=== PATIENT | male | born 1965 | race Caucasian/White ===

== ENCOUNTER 2017-01-10 09:25 | Emergency (ER) | payer OTHER ==
[~2017-01-10] VITALS: Ht 177.8 cm; Wt 76.0 kg
[2017-01-10 09:35] VITALS: TEMP 37; Ht 177.8 cm; Wt 76.0 kg
[2017-01-10] MEDS ORDERED: SODIUM CHLORIDE 0.9% 1000ML 1,000 ML IV STA (09:40)
[2017-01-10] MEDS ORDERED: SODIUM CHLORIDE 0.9% 1000ML 1,000 ML IV ONE (09:40)
[2017-01-10 10:00] LABS: HEMATOCRIT 50.3 % (42-52); MEAN CELL VOLUME 95.8 fL (80-100); MEAN CORPUSCULAR HEMOGLOBIN 32.4 pg (25-34); MEAN CORPUSCULAR HGB CONC 33.8 g/dl (32-36); MEAN PLATELET VOLUME 9.3 fL (7.4-10.4); PLATELET COUNT 303 K/uL (130-400); RED BLOOD COUNT 5.25 M/uL (4.7-6.1); WHITE BLOOD COUNT 14.73 K/uL (4.8-10.8)
--- NOTE | 2017-01-10 10:00 | DIAGNOSTIC IMAGING REPORT ---
CHEST ONE VIEW PORTABLE CLINICAL HISTORY: CHEST PAIN dyspnea COMPARISON STUDY: No previous studies for comparison. FINDINGS: The bones soft tissues and hemidiaphragms are normal. The cardiomediastinal silhouette is normal. The lungs are clear. The pulmonary vasculature is normal. IMPRESSION: Negative chest. Electronically signed by: Siddharth Garrett M.D. 01/10/2017 9:59 AM Dictated Date/Time: 01/10/2017 9:58 AM
[2017-01-10 10:16] LABS: BUN/CREATININE RATIO 13.8 (10-20); CALCIUM 9.1 mg/dl (8.5-10.1); CREATININE 1.7 mg/dl (0.60-1.40); POTASSIUM 3.5 mmol/L (3.5-5.1)
--- NOTE | 2017-01-10 10:29 | DIAGNOSTIC IMAGING REPORT ---
HEAD CT NONCONTRAST CT DOSE: 614.27 mGy.cm HISTORY: Seizure like symptoms. eval for intracranial process TECHNIQUE: Multiaxial CT images of the head were performed without the use of intravenous contrast. Automated exposure control was utilized for this study. Comparison: None. Findings: Retention cyst within the right maxillary sinus. No fluid levels within the paranasal sinuses. Age-indeterminate nasal bone fractures. The mastoid air cells are clear. The calvarium and skull base are intact. The ventricles and sulci are within normal limits. There is no mass, hematoma, midline shift, or acute infarct. Impression: No acute intracranial abnormality. Age-indeterminate nasal bone fractures. Electronically signed by: Moo Stevens M.D. 01/10/2017 10:27 AM Dictated Date/Time: 01/10/2017 10:23 AM
[2017-01-10 10:33] LABS: ACETAMINOPHEN < 2 ug/ml (10-30)
[2017-01-10] MEDS ORDERED: CLONAZEPAM 1 MG TAB PO STA (10:35)
[2017-01-10] MEDS ORDERED: CLONAZEPAM 0.5 MG TAB ONE (10:47)
[2017-01-10 11:02] LABS: BASO % 0.5 %; BASO ABS # 0.08 K/uL (0-0.2); COMPLETE YES; EOS % 0.5 %; IG% 0.3 %; LYMPH % 40.6 %; LYMPH ABS # 5.98 K/uL (1.2-3.4); MONO % 9.8 %; NEUT % 48.3 %
[2017-01-10] MEDS ORDERED: CHOL1TAB2 PO (12:02)
[2017-01-10] MEDS ORDERED: ZCR40 PO (12:02)
[2017-01-10] MEDS ORDERED: CITA20TA4 PO (12:02)
[2017-01-10] MEDS ORDERED: CLON1TAB3 PO (13:39)
[2017-01-10 13:55] VITALS: BP 111/60; PULSE 76; O2SAT 96
[2017-01-10 14:14] LABS: BENZODIAZEPINE, URINE NEG (NEG); COCAINE,URINE NEG (NEG); PHENCYCLIDINE, URINE NEG (NEG)
--- NOTE | 2017-01-10 14:21 | EMERGENCY ROOM VISIT NOTE ---
History Report prepared by Vikki: Roseanne Gee Under the Supervision of: Dr. Km Roberts M.D. First contact with patient: 09:39 Chief Complaint: ALTERED MENTAL STATUS Stated Complaint: MENTAL HEALTH EVALUATION Nursing Triage Summary: PT PRESENTS VIA ALS FROM WORK. PT HAS SIGNIFICANT ANXIETY HISTORY, THIS PAST SATURDAY WAS RECENTLY TAKEN OFF BENZOS AND PLACED ON CELEXA AND ATARAX. TODAY AT WORK, PT DEVELOPED AN ANXIETY ATTACK WITH "TWITCHING/SPASMODIC MOVEMENTS AND FELL TO THE FLOOR RESULTING IN FACIAL ABRASIONS". EMS DISPATCHED, PT WAS RESPONDING TO QUESTIONS [facility] THEN WHEN ARRIVED AT HOSPITAL HAD SEIZURE LIKE ACTIVITY AND BECAME POST-ICTAL WITH APENIC LIKE BREATHING PRIOR TO ENTERING ED ROOM. History of Present Illness The patient is a 51 year old male who presents to the Emergency Room with complaints of an episode of seizure like activity. He was on Klonopin, but was taken off of it 2 days ago by his doctor. He feels shaky and disconnected since the episode. He denies any recent illness. He fell and hit his head earlier today. He denies any headache. He tells me that he was on the Klonopin for 8 years and it was abruptly stopped by his doctor. These are the symptoms he gets when he stops his Klonopin on the way and he did have a possible seizure. The nurse got me and he was able to wake up but he did seem diaphoretic. He was not incontinent. He did not require any medications. Source of History: patient, EMS Onset: [facility] [employer] Position: other (global) Quality: other (seizure like activity) Timing: other (episodic) Associated Symptoms: No headache Note: Pt reports feeling shaky and disconnected. Review of Systems See HPI for pertinent positives & negatives. A total of 10 systems reviewed and were otherwise negative. Past Medical & Surgical Medical Problems: (1) Anxiety Old medical records were reviewed. Nurse's notes were reviewed and I agree with. Family History Pt reports no pertinent family history. Social History Smoking Status: Never Smoker Marital Status: single Occupation Status: employed Current/Historical Medications Scheduled Cholecalciferol (Vitamin D-3), 2 TABS PO QAM Citalopram Hydrobromide (Citalopram Hydrobromide), 1 TAB PO DAILY Clonazepam (Klonopin), 1 MG PO QD Simvastatin (Simvastatin), 0.5 TAB PO HS Allergies Coded Allergies: No Known Allergies (Unverified , 01/10/17) Physical Exam Vital Signs Date Time Temp Pulse Resp B/P Pulse Ox O2 Delivery O2 Flow Rate FiO2 01/10/17 13:55 76 20 111/60 96 01/10/17 13:30 76 20 111/60 96 Room Air 01/10/17 12:30 70 20 110/55 96 Room Air 01/10/17 10:48 96 16 127/69 95 Room Air 01/10/17 09:41 105 01/10/17 09:35 37.0 107 16 175/60 91 Room Air Physical Exam General: Post ictal, but awake and answering questions. Well developed well nourished, breathing comfortably on room air. Normal speech HEENT: Normal cephalic atraumatic. Pupils are equal round and reactive to light. Sclerae anicteric. Extraocular movements are intact. Oropharynx is pink with moist mucous membranes. No swelling of the mouth lips or tongue. Neck: Supple with a midline trachea. No meningeal signs or stiffness, no JVD or bruits. No Stridor. Chest: Clear to auscultation bilaterally. No wheezes or rhonchi. No increased work of breathing. Heart: regular rate and rhythm. Abdomen: Soft nontender, nondistended without rebound guarding or rigidity. Extremities: No cyanosis clubbing or edema. No calf tenderness or assymetry Spine/Back. Non tender to palpation. No CVA tenderness Skin: Good turgor without rashes. Mildly diaphoretic. Abrasion to nose from previous fall. Neurologic exam: Cranial nerves two through 12 are intact. Motor and sensation are intact and symmetrical throughout. Medical Decision & Procedures ER Provider Diagnostic Interpretation: X-ray results as stated below per interpretation by me and the radiologist. Radiology results as stated below per my review and radiologist interpretation: CHEST ONE VIEW PORTABLE CLINICAL HISTORY: CHEST PAIN dyspnea COMPARISON STUDY: No previous studies for comparison. FINDINGS: The bones soft tissues and hemidiaphragms are normal. The cardiomediastinal silhouette is normal. The lungs are clear. The pulmonary vasculature is normal. IMPRESSION: Negative chest. Electronically signed by: Siddharth Garrett M.D. 01/10/2017 9:59 AM Dictated Date/Time: 01/10/2017 9:[address] CT DOSE: 614.27 mGy.cm HISTORY: Seizure like symptoms. eval for intracranial process TECHNIQUE: Multiaxial CT images of the head were performed without the use of intravenous contrast. Automated exposure control was utilized for this study. Comparison: None. Findings: Retention cyst within the right maxillary sinus. No fluid levels within the paranasal sinuses. Age-indeterminate nasal bone fractures. The mastoid air cells are clear. The calvarium and skull base are intact. The ventricles and sulci are within normal limits. There is no mass, hematoma, midline shift, or acute infarct. Impression: No acute intracranial abnormality. Age-indeterminate nasal bone fractures. Electronically signed by: Moo Stevens M.D. 01/10/2017 10:27 AM Dictated Date/Time: 01/10/2017 10:23 AM Laboratory Results 01/10/17 09:40 Red Blood Count 5.25, Mean Corpuscular Volume 95.8, Mean Corpuscular Hemoglobin 32.4, Mean Corpuscular Hemoglobin Concent 33.8, Mean Platelet Volume 9.3, Neutrophils (%) (Auto) 48.3, Lymphocytes (%) (Auto) 40.6, Monocytes (%) (Auto) 9.8, Eosinophils (%) (Auto) 0.5, Basophils (%) (Auto) 0.5, Neutrophils # (Auto) 7.10, Lymphocytes # (Auto) 5.98, Monocytes # (Auto) 1.44, Eosinophils # (Auto) 0.08, Basophils # (Auto) 0.08 01/10/17 09:40 Test 01/10/17 09:37 01/10/17 09:40 01/10/17 09:52 01/10/17 10:00 Bedside Glucose 166 mg/dl (70-99) White Blood Count 14.73 K/uL (4.8-10.8) Red Blood Count 5.25 M/uL (4.7-6.1) Hemoglobin 17.0 g/dL (14.0-18.0) Hematocrit 50.3 % (42-52) Mean Corpuscular Volume 95.8 fL (80-100) Mean Corpuscular Hemoglobin 32.4 pg (25-34) Mean Corpuscular Hemoglobin Concent 33.8 g/dl (32-36) Platelet Count 303 K/uL (130-400) Mean Platelet Volume 9.3 fL (7.4-10.4) Neutrophils (%) (Auto) 48.3 % Lymphocytes (%) (Auto) 40.6 % Monocytes (%) (Auto) 9.8 % Eosinophils (%) (Auto) 0.5 % Basophils (%) (Auto) 0.5 % Neutrophils # (Auto) 7.10 K/uL (1.4-6.5) Lymphocytes # (Auto) 5.98 K/uL (1.2-3.4) Monocytes # (Auto) 1.44 K/uL (0.11-0.59) Eosinophils # (Auto) 0.08 K/uL (0-0.5) Basophils # (Auto) 0.08 K/uL (0-0.2) RDW Standard Deviation 45.8 fL (36.4-46.3) RDW Coefficient of Variation 13.1 % (11.5-14.5) Immature Granulocyte % (Auto) 0.3 % Immature Granulocyte # (Auto) 0.05 K/uL (0.00-0.02) Anion Gap 28.0 mmol/L (3-11) Est Creatinine Clear Calc Drug Dose 53.7 ml/min Estimated GFR () 53.3 Estimated GFR (Non- 46.0 BUN/Creatinine Ratio 13.8 (10-20) Calcium Level 9.1 mg/dl (8.5-10.1) Total Bilirubin 1.0 mg/dl (0.2-1) Direct Bilirubin 0.2 mg/dl (0-0.2) Aspartate Amino Transf (AST/SGOT) 28 U/L (15-37) Alanine Aminotransferase (ALT/SGPT) 39 U/L (12-78) Alkaline Phosphatase 90 U/L (45-117) Total Creatine Kinase 344 U/L (39-308) Creatine Kinase MB 3.3 ng/ml (0.5-3.6) Creatine Kinase MB Ratio 1.0 (0-3.0) Total Protein 8.5 gm/dl (6.4-8.2) Albumin 4.4 gm/dl (3.4-5.0) Lipase 206 U/L (73-393) Salicylates Level < 1.7 mg/dl (2.8-20) Acetaminophen Level < 2 ug/ml (10-30) Bedside Troponin I 0.000 ng/ml (0-0.045) Ethyl Alcohol mg/dL < 3.0 mg/dl (0-3) Test 01/10/17 13:30 Urine Opiates Screen NEG (NEG) Urine Methadone, Qualitative NEG (NEG) Urine Barbiturates NEG (NEG) Urine Phencyclidine (PCP) Level NEG (NEG) Ur Amphetamine/Methamphetamine NEG (NEG) MDMA (Ecstasy) Screen NEG (NEG) Urine Benzodiazepines Screen NEG (NEG) Urine Cocaine Metabolite NEG (NEG) Urine Marijuana (THC) NEG (NEG) Laboratory studies as stated above per my review. Medications Administered Medications (Trade) Dose Ordered Sig/John Route Start Time Stop Time Status Last Admin Dose Admin Sodium Chloride 1,000 ml @ 999 mls/hr Q1H1M STAT IV 01/10/17 09:40 01/10/17 10:40 DC 01/10/17 09:57 999 MLS/HR Sodium Chloride (Nss 1000ml) 1,000 ml @ 150 mls/hr Q6H40M ONCE IV 01/10/17 09:40 01/10/17 16:19 01/10/17 09:40 150 MLS/HR Clonazepam (Klonopin Tab) 1 mg STK-MED ONCE .ROUTE 01/10/17 10:47 01/10/17 10:48 DC 01/10/17 10:43 1 MG ECG Indication: altered mental status Rate (beats per minute): 107 Rhythm: sinus tachycardia Findings: no acute ischemic change, prolonged QT (mild) Comparison ECG Date: no prior available ED Course 0932: Past medical records reviewed. The patient was evaluated in room A11B, and a complete history and physical examination were performed. 0940: NSS 1000 ml @ 150 mls/hr IV, NSS 1000 ml @ 999 mls/hr IV. 1035: I reevaluated the patient. He looks better. He is not post-ictal. He feels that he needs Klonopin. 1047: Clonazepam 1 mg. 1145: I reevaluated the patient. He is doing better. 1302: I reevaluated the patient. He is resting comfortably. 1340: Upon reevaluation, the patient is resting comfortably. I discussed the results and treatment plan with him. I stressed that he should not drive today or until he feels back at baseline. He verbalized agreement of the treatment plan. The patient was discharged home. Medical Decision Differential diagnoses: medication withdrawal, seizure, arrhythmia, trauma. This patient comes in as described above. He was placed in room A 11. He abruptly was stopped on benzodiazepines which he's been on for 8 years and has been shaking feeling disconnected since then. He had a brief seizure prior to coming and he did receive Ativan 1 mg prior to this he woke up quickly and was resting comfortably. He has requested his normal Klonopin and he takes 1 mg a day. I gave him his normal Klonopin a prescription for the next week. CAT scan of his head was unremarkable. Blood work shows some mild renal insufficiency but was otherwise unremarkable. This could be hydrationally related. He is to rest and drink plenty of fluids. he did receive IV hydration while he was here. He denies that he had any suicidal or homicidal ideations. He's been feeling somewhat anxious. He does fine if he is on his meds he says. Our case management team saw him from a psychiatric standpoint and she has made him an appointment to see a psychiatrist tomorrow at the [facility]. The patient will not drive. I think that symptoms were from withdrawal and would not have a permanent exclusion from driving but today he should not drive and if these back to baseline he can drive later. He should return if worsening symptoms, any new problems or concerns. He is happy with plan discharge to home. Impression Primary Impression: Medication withdrawal Additional Impressions: Seizure Anxiety Scribe Attestation The scribe's documentation has been prepared under my direction and personally reviewed by me in its entirety. I confirm that the note above accurately reflects all work, treatment, procedures, and medical decision making performed by me. Departure Information Dispostion Home / Self-Care Prescriptions Clonazepam (Klonopin) 1 Mg Tab 1 MG PO QD, #10 TAB Prov: Km Roberts M.D. 01/10/17 Referrals Km Bolanos D.O. Forms HOME CARE DOCUMENTATION FORM, IMPORTANT VISIT INFORMATION Patient Instructions My [facility] Additional Instructions Rest Drink plenty of fluids Do not drive or operate machinary Return if: worsening of symptoms, fever, shortness of breath, any new problems or concerns Use Klonopin 1 mg a day- Replaces Atarax [facility] at [facility]:15- Dr. Pena Problem Qualifiers
[2017-02-27] MEDS ORDERED: PARO10TA3 PO (14:02)
[2017-02-27] MEDS ORDERED: KLN5 PO (14:02)
== END 2017-01-10 13:56 | disposition home or self-care (01) ==
LOC: EDBD 09:25 → C.EDA 09:30
DX: F19.20 Other psychoactive substance dependence, uncomplicated (principal); G40.909 Epilepsy, unspecified, not intractable, without status epilepticus; F41.9 Anxiety disorder, unspecified; Z79.899 Other long term (current) drug therapy

== ENCOUNTER 2017-02-25 07:58 | Observation (INO) | payer OTHER ==
[2017-02-25] VITALS (7 sets, daily range): BP systolic 97–147; BP diastolic 46–88; PULSE 50–79; TEMP 36–37.1; O2SAT 96–98; Ht 177.8 cm; Wt 78.6 kg
[~2017-02-25] VITALS: Ht 177.8 cm; Wt 78.6 kg
[~2017-02-25 07:58] MED LIST: CHOL1TAB2 PO; CITA20TA4 PO; CLON1TAB3 PO; ZCR40 PO
[2017-02-25] MEDS ORDERED: TRAZ50TA35 PO (08:14)
[2017-02-25] MEDS ORDERED: PXL/40 PO (08:14)
[2017-02-25 09:24] LABS: BASO % 0.3 %; BASO ABS # 0.02 K/uL (0-0.2); COMPLETE YES; EOS % 0.3 %; HEMATOCRIT 43.1 % (42-52); IG% 0.2 %; LYMPH % 24.4 %; LYMPH ABS # 1.45 K/uL (1.2-3.4); MEAN CELL VOLUME 92.9 fL (80-100); MEAN CORPUSCULAR HEMOGLOBIN 31.7 pg (25-34); MEAN CORPUSCULAR HGB CONC 34.1 g/dl (32-36); MEAN PLATELET VOLUME 8.7 fL (7.4-10.4); MONO % 7.6 %; NEUT % 67.2 %; PLATELET COUNT 191 K/uL (130-400); RED BLOOD COUNT 4.64 M/uL (4.7-6.1); WHITE BLOOD COUNT 5.94 K/uL (4.8-10.8)
--- NOTE | 2017-02-25 09:29 | DIAGNOSTIC IMAGING REPORT ---
CHEST ONE VIEW PORTABLE HISTORY: SYNCOPE VS SEIZURE COMPARISON: Chest 01/10/2017. FINDINGS: The lungs remain clear. The heart is mildly enlarged. This remains unchanged. No pleural effusions. No pneumothorax. IMPRESSION: Stable mild cardiomegaly. Electronically signed by: Moo Stevens M.D. 02/25/2017 9:27 AM Dictated Date/Time: 02/25/2017 9:26 AM
[2017-02-25 09:34] LABS: URINE APPEARANCE CLEAR (CLEAR); URINE BILIRUBIN NEG (NEG); URINE COLOR YELLOW; URINE NITRITE NEG (NEG); URINE PH 6.5 (4.5-7.5); URINE SPECIFIC GRAVITY 1.024 (1.000-1.030); UROBILINOGEN NEG (NEG)
[2017-02-25 09:35] LABS: PROTHROMBIN TIME (PATIENT) 10.6 SECONDS (9.0-12.0)
[2017-02-25 09:35] LABS: MANUAL MICROSCOPIC REQUIRED? NO; REVIEW REQ? NO
[2017-02-25 09:42] LABS: ALT/SGPT 24 U/L (12-78); BLOOD UREA NITROGEN 20 mg/dl (7-18); BUN/CREATININE RATIO 21.9 (10-20); CARBON DIOXIDE 28 mmol/L (21-32); CHLORIDE 107 mmol/L (98-107); CREATININE 0.93 mg/dl (0.60-1.40); GLUCOSE 104 mg/dl (70-99); POTASSIUM 4.5 mmol/L (3.5-5.1); SODIUM 141 mmol/L (136-145)
[2017-02-25 09:53] LABS: ALB/GLOB RATIO 1.1 (0.9-2); ALKALINE PHOSPHATASE 67 U/L (45-117); AST/SGOT 17 U/L (15-37); CKMB/CK RATIO 1.2 (0-3.0); PHOSPHORUS 1.8 mg/dl (2.5-4.9)
[2017-02-25 09:55] LABS: BENZODIAZEPINE, URINE POS (NEG); COCAINE,URINE NEG (NEG); PHENCYCLIDINE, URINE NEG (NEG)
[2017-02-25 09:59] LABS: CALCIUM 8.4 mg/dl (8.5-10.1)
[2017-02-25] MEDS ORDERED: ACETAMINOPHEN 325 MG TAB PO PRN (12:30)
[2017-02-25] MEDS ORDERED: ONDANSETRON INJ 2 MG/ML 2 ML VIAL IV PRN (12:30)
--- NOTE | 2017-02-25 12:50 | History and Physical ---
History & Physical Date & Time of Service: February 25, 2017 at 12:33 Chief Complaint: Seizure Like Sx Primary Care Physician: Serena Pena C.R.N.P. History of Present Illness Source: patient This is a 51yo male with PMHx of hypercholesterolemia, anxiety, depression, panic attacks, PTSD with complaints of electrical-like/shock like sensation in his face. Patient reports electricity shocking episodes are chronic in nature , but had a bad spell at approximately 1:30 in the morning last night. He reports that he was able to go back to sleep and then woke back up around 6:30 AM with another. He reports the sensation is as if the electricity has been removed from his body. He denies any loss of consciousness during the event reports that if the pain/electrical shock sensation is too great, he has experience seizure-like activity. He he denies having any tonic-clonic seizure- like activity, but does report a postictal phase where he is not able to remember the event. This has been witnessed by a principal secretary at work before. The events have increased in intensity and frequency since he's been taken off Klonopin at the beginning of January, prior to this had been on klonopin Patient reports he has 1 episode approximately every other day in the each lasts from 1 hour to several hours on a regular basis. He has not identified any trigger factors. He does not find any alleviating factors other than Ativan or Klonopin. He reports being abruptly discontinued on klonopin in early January, it was not weaned down. Since seeing his PCP after his ER visit on January 10, he was given a 1 wk supply of Klonopin 1mg QID and weaned off completely again. He has been taking 0.25 mg for episodes to in hopes extend availability of medication. Patient was seen by psychiatrist at the [facility] at end of last week, and was started on paroxetine 10 mg daily for depression, anxiety and panic attacks. He has taken this before and experienced improvement in his mood, but stopped it due to sexual dysfunction. Since this weekend, he has taken it for one day and actually has reservations about continuing the medication due to history of sexual dysfunction while on it. 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 The patient has tried multiple medications including Paxil, Prozac, Zoloft, Celexa, Lexapro, hydroxyzine, Klonopin, Xanax He stopped chewing tobacco ~ 1 month ago, had done it for 35 years. Past Medical/Surgical History Medical Problems: (1) Anxiety Status: Chronic (2) Dyslipidemia Status: Chronic (3) Medication withdrawal Status: Resolved (4) Seizure Status: Resolved Social History Smoking Status: Never Smoker Smokeless Tobacco Use: Yes (40 year history, quit 1 month ago.) Alcohol Use: none Drug Use: none Marital Status: single Housing status: lives alone Occupational Status: employed Allergies Coded Allergies: Hydroxyzine (Unverified Allergy, Intermediate, ., 02/25/17) Sertraline (Unverified Allergy, Intermediate, ., 02/25/17) Home Medications Scheduled Cholecalciferol (Vitamin D-3), 2 TABS PO QAM Paroxetine (Paxil), Unknown Dose PO DAILY Simvastatin (Simvastatin), 0.5 TAB PO HS Trazodone Hcl (Trazodone), 50 MG PO DAILY Review of Systems Constitutional: No fever, sweats or chills Eyes: No diplopia, no worsening or blurred vision ENT: normal hearing, no trouble swallowing Respiratory: No cough, sputum, dyspnea at rest or on exertion Cardiovascular: No chest pain, tightness or palpitations Abdomen: No pain, nausea, vomiting, diarrhea or constipation Musculoskeletal: No joint pain, calf pain, swelling Neurologic: No weakness, numbness/tingling, or balance problems Psychiatric: See history of present illness Skin: No rash or itch Physical Exam Vital Signs Date Time Temp Pulse Resp B/P Pulse Ox O2 Delivery O2 Flow Rate FiO2 02/25/17 12:08 98 Room Air 02/25/17 11:13 54 16 110/60 98 Room Air 02/25/17 11:05 54 16 110/60 98 70 111/78 65 113/79 02/25/17 09:29 55 02/25/17 09:26 62 16 109/65 97 Room Air 02/25/17 08:01 36.9 83 18 126/83 97 Room Air General: awake, alert, no apparent distress, +flat affect Head: Normocephalic, atraumatic ENT: PERRL, EOMI, no pharyngeal exudate, mucous membranes moist Chest: Clear to auscultation, on room air, no adventitious breath sounds Cardiac: + Bradycardic, regular rhythm, no murmur, no JVD, normal peripheral pulses, good capillary refill Abdominal: NABS x 4 quadrants, soft, nontender to palpation, no rebound, guarding or tenderness Extremities: Normal inspection, no peripheral edema or erythema, calfs nontender to palpation Psych: Normal mood, flat affect, good eye contact Neuro: AAO x 3, strength intact bilaterally and related 5/5, no motor deficits, speech is clear, no peripheral sensory deficits Diagnostics Laboratory Results Results Past 24 Hours Test 02/25/17 09:03 02/25/17 09:12 02/25/17 09:15 02/25/17 09:29 Range/Units Creatine Kinase MB Ratio 1.2 0-3.0 White Blood Count 5.94 4.8-10.8 K/uL Red Blood Count 4.64 4.7-6.1 M/uL Hemoglobin 14.7 14.0-18.0 g/dL Hematocrit 43.1 42-52 % Mean Corpuscular Volume 92.9 80-100 fL Mean Corpuscular Hemoglobin 31.7 25-34 pg Mean Corpuscular Hemoglobin Concent 34.1 32-36 g/dl Platelet Count 191 130-400 K/uL Mean Platelet Volume 8.7 7.4-10.4 fL Neutrophils (%) (Auto) 67.2 % Lymphocytes (%) (Auto) 24.4 % Monocytes (%) (Auto) 7.6 % Eosinophils (%) (Auto) 0.3 % Basophils (%) (Auto) 0.3 % Neutrophils # (Auto) 3.99 1.4-6.5 K/uL Lymphocytes # (Auto) 1.45 1.2-3.4 K/uL Monocytes # (Auto) 0.45 0.11-0.59 K/uL Eosinophils # (Auto) 0.02 0-0.5 K/uL Basophils # (Auto) 0.02 0-0.2 K/uL RDW Standard Deviation 43.5 36.4-46.3 fL RDW Coefficient of Variation 12.9 11.5-14.5 % Immature Granulocyte % (Auto) 0.2 % Immature Granulocyte # (Auto) 0.01 0.00-0.02 K/uL Prothrombin Time 10.6 9.0-12.0 SECONDS Prothromb Time International Ratio 1.0 0.9-1.1 Activated Partial Thromboplast Time 25.9 21.0-31.0 SECONDS Partial Thromboplastin Ratio 1.0 Sodium Level 141 136-145 mmol/L Potassium Level 4.5 3.5-5.1 mmol/L Chloride Level 107 98-107 mmol/L Carbon Dioxide Level 28 21-32 mmol/L Anion Gap 6.0 3-11 mmol/L Blood Urea Nitrogen 20 7-18 mg/dl Creatinine 0.93 0.60-1.40 mg/dl Est Creatinine Clear Calc Drug Dose 98.1 ml/min Estimated GFR () 110.6 Estimated GFR (Non- 95.4 BUN/Creatinine Ratio 21.9 10-20 Random Glucose 104 70-99 mg/dl Calcium Level 8.4 8.5-10.1 mg/dl Phosphorus Level 1.8 2.5-4.9 mg/dl Magnesium Level 2.0 1.8-2.4 mg/dl Total Bilirubin 0.5 0.2-1 mg/dl Aspartate Amino Transf (AST/SGOT) 17 15-37 U/L Alanine Aminotransferase (ALT/SGPT) 24 12-78 U/L Alkaline Phosphatase 67 45-117 U/L Total Creatine Kinase 165 39-308 U/L Creatine Kinase MB 2.0 0.5-3.6 ng/ml Troponin I < 0.015 0-0.045 ng/ml Total Protein 6.9 6.4-8.2 gm/dl Albumin 3.6 3.4-5.0 gm/dl Globulin 3.3 2.5-4.0 gm/dl Albumin/Globulin Ratio 1.1 0.9-2 Thyroid Stimulating Hormone (TSH) 1.800 0.300-4.500 uIu/ml Urine Color YELLOW Urine Appearance CLEAR CLEAR Urine pH 6.5 4.5-7.5 Urine Specific [place] 1.024 1.000-1.030 Urine Protein NEG NEG Urine Glucose (UA) NEG NEG Urine Ketones NEG NEG Urine Occult Blood NEG NEG Urine Nitrite NEG NEG Urine Bilirubin NEG NEG Urine Urobilinogen NEG NEG Urine Leukocyte Esterase NEG NEG Urine Opiates Screen NEG NEG Urine Methadone, Qualitative NEG NEG Urine Barbiturates NEG NEG Urine Phencyclidine (PCP) Level NEG NEG Ur Amphetamine/Methamphetamine NEG NEG MDMA (Ecstasy) Screen NEG NEG Urine Benzodiazepines Screen POS NEG Urine Cocaine Metabolite NEG NEG Urine Marijuana (THC) NEG NEG Bedside Glucose 95 70-99 mg/dl Impression Assessment and Plan This is a 51-year-old male with PMHx of hypercholesterolemia, anxiety, depression, panic attacks, PTSD with complaints of electrical-like shock like sensation in his face. Presents after continued complaints since Klonopin was discontinued in early January. Shocklike electrical sensation - Admit the patient for telemetry observation - Consider cardiology consult pending tele monitoring, was already scheduled for Holter monitor as outpatient in the next month- will plan to give Rx at time of discharge for Holter monitor. - Lab studies are within normal limits - Daily EKG - Consider neurology consult if nothing shows on Holter monitor Anxiety/depression Panic attacks PTSD - We'll continue the patient on his home dosage of trazodone 50 mg daily at bedtime, and paroxetine 10 mg daily for now. Would suggest that if the patient already has reservations about starting paroxetine due to sexual dysfunction, that this should be discontinued. In light of his complaints of panic attacks and anxiety along with electrical shocklike complaints the patient may benefit from gabapentin. He has not tried any anti-seizure medication or mood stabilizer in the past. - Please see HPI for list of medications he has previously tried. - Can use Ativan 1 mg IV when necessary- would not discharge the patient on this medication - Patient will need close follow-up with psychiatrist at the [facility] after discharge , preferably within 1 week - He does not currently see a counselor, recommended this to the patient Hyperlipidemia - Continue simvastatin 20 mg daily Hx of Chewing tobacco - Encouraged continued cessation - Pt has outpatient colonoscopy scheduled next month. DVT prophylaxis: Teds, SCDs, Lovenox CODE STATUS: Full code Disposition: Holter monitor outpatient set up, likely can discharge within one day. Level of Care Telemetry Advanced Directives Existing Living Will: No Existing Power of Ampoule Examiner: No Resuscitation Status FULL RESUSCITATION VTE Prophylaxis VTE Risk Assessment Done? Y/N: Yes Risk Level: Very Low Given or contraindicated: Enoxaparin (Lovenox)SQ, T.E.D. Stockings, SCD's Reviewed: Pt Seen/Exam by Me History Pt has been having ongoing "electrical shocks" since moving to the floor from the ED. No major episodes with LOC, but ongoing mild episodes. He states these are about 1/hr on average, but at times he has more. Of note, these sx are what prompted the use of klonopin in 2007. He thinks he may have seen neuro at that time, but is unsure. He states he was never given a dx about this, but the shocks stopped with initiation of klonopin at that time and did not return until d/c in January. No incontinence. Onset can be at rest or with activity, sometimes strenuous activity, some times basic activity. Sometimes with LOC, sometimes just a shock. Can be either side of face or back of head. Is uncertain if he had an EEG or cardiac work-up in 2007. Agree with HPI/ROS as noted. General Appearance: WD/WN, no apparent distress Respiratory: normal breath sounds, no respiratory distress Cardiovascular: normal peripheral pulses, regular rate, rhythm Gastrointestinal: non tender, soft Extremities: non-tender, no pedal edema Neurologic/Psychiatric: alert, oriented x 3 Skin Characteristics: normal color, warm/dry Assessment/Plan Agree with plan as outlined above Tele monitor Pt advised to note time when he has episodes to try to correlate with monitor Seems likely he will need neuro c/s with EEG if tele monitor is neg ?? atypical seizures??
[2017-02-25] MEDS ORDERED: LORAZEPAM 2 MG/ML 1 ML VIAL IV PRN (13:00)
[2017-02-25] MEDS ORDERED: LORAZEPAM 0.5 MG TAB PO PRN (13:00)
[2017-02-25] MEDS ORDERED: IV FLUIDS COMPLETED PRN (13:45)
[2017-02-25] MEDS ORDERED: LORAZEPAM INJ 1 MG in SYRINGE 0.5 ML IV PRN (14:00)
--- NOTE | 2017-02-25 16:00 | EMERGENCY ROOM VISIT NOTE ---
History First contact with patient: 08:29 Chief Complaint: OTHER COMPLAINT Stated Complaint: SEIZURE LIKE SX History of Present Illness Patient is a 51-year-old white male with past medical history significant for dyslipidemia who presents the emergency department for seizure-like activity. Patient reports that his symptoms started in the end of December/early January, when his clonazepam was discontinued by his PCP at the [facility]. Patient reports that he has been on the clonazepam for 10 years for a "neurology problem." He denies that he takes for anxiety. He was seen here on a 01/10 for similar symptoms. He describes episodes where he gets a "electrical jolt" through his face, and his face goes numb. He states that that is "the warning" that something worse is going to happen. He states that he will then go on to loose control of his body , occasionally he has fallen and had loss of consciousness with amnesia of the incident. He relates that that has happened multiple times in the last couple of weeks. He was seen in the emergency department at [facility] 2 weeks ago and in [place] last week. He denies any generalized tonic/clonic seizure activity, there is no incontinence or tongue biting associated with these episodes. He has been given multiple diagnoses including medication withdrawal, seizure and syncope. He has made multiple attempts to get in with the [facility], but has been unable to. He does not have an appointment until March 14, at which point he states they're planning on doing a Holter monitor. He reports that he had been on hydroxyzine and a different SSRI, but he discontinued them as he thought they were contributing to his symptoms. He otherwise has been taking Paroxetine , but has only taken 2 doses of this, his last dose was yesterday, and has used trazodone as needed for sleep for the last month. He denies any alcohol or illicit drug use. He denies any chest pain, palpitations or shortness of breath. Review of Systems Review of systems as per HPI. All other systems reviewed were negative. 10 systems reviewed. Past Medical/Surgical History Medical Problems: (1) Anxiety (2) Dyslipidemia (3) Medication withdrawal (4) Seizure (5) Seizure-like activity Electronic medical records are reviewed and summarized as above/below. See Problem List. Social History Smoking Status: Former Smoker Smokeless Tobacco Use: Yes Marital Status: single Housing Status: lives alone Occupation Status: employed Current/Historical Medications Scheduled Cholecalciferol (Vitamin D-3), 2 TABS PO QAM Paroxetine (Paxil), Unknown Dose PO DAILY Simvastatin (Simvastatin), 0.5 TAB PO HS Trazodone Hcl (Trazodone), 50 MG PO DAILY Allergies Coded Allergies: Hydroxyzine (Unverified Allergy, Intermediate, ., 02/25/17) Sertraline (Unverified Allergy, Intermediate, ., 02/25/17) Physical Exam Vital Signs Date Time Temp Pulse Resp B/P Pulse Ox O2 Delivery O2 Flow Rate FiO2 02/25/17 12:08 98 Room Air 02/25/17 11:13 54 16 110/60 98 Room Air 02/25/17 11:05 54 16 110/60 98 70 111/78 65 113/79 02/25/17 09:29 55 02/25/17 09:26 62 16 109/65 97 Room Air 02/25/17 08:01 36.9 83 18 126/83 97 Room Air Physical Exam CONSTITUTIONAL: Patient is a well-appearing 51-year-old white male who is awake and alert and in no acute distress. HEENT: Normocephalic, atraumatic. Pupils equal, round, reactive to light and accommodation. EOMs intact without nystagmus. Sclera are anicteric. Tympanic membranes intact, with normal landmarks. External canals are clear. No hemotympanum or Bernal sign. Oral and nasopharynx are clear. No CSF rhinorrhea. Mucous membranes are moist. NECK: Supple, nontender, no lymphadenopathy. Full range of motion. No carotid bruits auscultated. HEART: Regular rate and rhythm, with normal S1 and S2, no murmur or gallop or rub is heard. LUNGS: Breath sounds equal and clear to auscultation without wheezes, rales, or rhonchi heard. SKIN: No lesions or rash, normal skin turgor. EXTREMITIES: No cyanosis, edema, joint tenderness or swelling. No deformity. NEUROLOGICAL: Alert and oriented x4. Cranial nerves 2 through 12, sensation and strength grossly intact. Gait is normal. Patient is able to toe, heel and tandem walk without difficulty. Negative Romberg, and pronator drift. Finger to nose, finger to finger and rapid alternating movements are intact. Immediate , recent and remote memories are intact. Concentration is normal. Medical Decision & Procedures ER Provider Diagnostic Interpretation: CHEST ONE VIEW PORTABLE HISTORY: SYNCOPE VS SEIZURE COMPARISON: Chest 01/10/2017. FINDINGS: The lungs remain clear. The heart is mildly enlarged. This remains unchanged. No pleural effusions. No pneumothorax. IMPRESSION: Stable mild cardiomegaly. Laboratory Results 02/25/17 09:12 Red Blood Count 4.64, Mean Corpuscular Volume 92.9, Mean Corpuscular Hemoglobin 31.7, Mean Corpuscular Hemoglobin Concent 34.1, Mean Platelet Volume 8.7, Neutrophils (%) (Auto) 67.2, Lymphocytes (%) (Auto) 24.4, Monocytes (%) (Auto) 7.6, Eosinophils (%) (Auto) 0.3, Basophils (%) (Auto) 0.3, Neutrophils # (Auto) 3.99, Lymphocytes # (Auto) 1.45, Monocytes # (Auto) 0.45, Eosinophils # (Auto) 0.02, Basophils # (Auto) 0.02 02/25/17 09:12 Test 02/25/17 09:12 02/25/17 09:15 02/25/17 09:29 White Blood Count 5.94 K/uL (4.8-10.8) Red Blood Count 4.64 M/uL (4.7-6.1) Hemoglobin 14.7 g/dL (14.0-18.0) Hematocrit 43.1 % (42-52) Mean Corpuscular Volume 92.9 fL (80-100) Mean Corpuscular Hemoglobin 31.7 pg (25-34) Mean Corpuscular Hemoglobin Concent 34.1 g/dl (32-36) Platelet Count 191 K/uL (130-400) Mean Platelet Volume 8.7 fL (7.4-10.4) Neutrophils (%) (Auto) 67.2 % Lymphocytes (%) (Auto) 24.4 % Monocytes (%) (Auto) 7.6 % Eosinophils (%) (Auto) 0.3 % Basophils (%) (Auto) 0.3 % Neutrophils # (Auto) 3.99 K/uL (1.4-6.5) Lymphocytes # (Auto) 1.45 K/uL (1.2-3.4) Monocytes # (Auto) 0.45 K/uL (0.11-0.59) Eosinophils # (Auto) 0.02 K/uL (0-0.5) Basophils # (Auto) 0.02 K/uL (0-0.2) RDW Standard Deviation 43.5 fL (36.4-46.3) RDW Coefficient of Variation 12.9 % (11.5-14.5) Immature Granulocyte % (Auto) 0.2 % Immature Granulocyte # (Auto) 0.01 K/uL (0.00-0.02) Prothrombin Time 10.6 SECONDS (9.0-12.0) Prothromb Time International Ratio 1.0 (0.9-1.1) Activated Partial Thromboplast Time 25.9 SECONDS (21.0-31.0) Partial Thromboplastin Ratio 1.0 Anion Gap 6.0 mmol/L (3-11) Est Creatinine Clear Calc Drug Dose 98.1 ml/min Estimated GFR () 110.6 Estimated GFR (Non- 95.4 BUN/Creatinine Ratio 21.9 (10-20) Calcium Level 8.4 mg/dl (8.5-10.1) Phosphorus Level 1.8 mg/dl (2.5-4.9) Magnesium Level 2.0 mg/dl (1.8-2.4) Total Bilirubin 0.5 mg/dl (0.2-1) Aspartate Amino Transf (AST/SGOT) 17 U/L (15-37) Alanine Aminotransferase (ALT/SGPT) 24 U/L (12-78) Alkaline Phosphatase 67 U/L (45-117) Total Creatine Kinase 165 U/L (39-308) Creatine Kinase MB 2.0 ng/ml (0.5-3.6) Creatine Kinase MB Ratio 1.2 (0-3.0) Troponin I < 0.015 ng/ml (0-0.045) Total Protein 6.9 gm/dl (6.4-8.2) Albumin 3.6 gm/dl (3.4-5.0) Globulin 3.3 gm/dl (2.5-4.0) Albumin/Globulin Ratio 1.1 (0.9-2) Thyroid Stimulating Hormone (TSH) 1.800 uIu/ml (0.300-4.500) Urine Color YELLOW Urine Appearance CLEAR (CLEAR) Urine pH 6.5 (4.5-7.5) Urine Specific [place] 1.024 (1.000-1.030) Urine Protein NEG (NEG) Urine Glucose (UA) NEG (NEG) Urine Ketones NEG (NEG) Urine Occult Blood NEG (NEG) Urine Nitrite NEG (NEG) Urine Bilirubin NEG (NEG) Urine Urobilinogen NEG (NEG) Urine Leukocyte Esterase NEG (NEG) Urine Opiates Screen NEG (NEG) Urine Methadone, Qualitative NEG (NEG) Urine Barbiturates NEG (NEG) Urine Phencyclidine (PCP) Level NEG (NEG) Ur Amphetamine/Methamphetamine NEG (NEG) MDMA (Ecstasy) Screen NEG (NEG) Urine Benzodiazepines Screen POS (NEG) Urine Cocaine Metabolite NEG (NEG) Urine Marijuana (THC) NEG (NEG) Bedside Glucose 95 mg/dl (70-99) ECG Indication: syncope Rate (beats per minute): 57 Rhythm: sinus bradycardia Findings: no acute ischemic change, no ectopy Change: no significant change ED Course The patient was seen and evaluated as above. His old records are reviewed, including his prior ED visit from January, at which point he states that he presented with similar symptoms. He presents today with vague neurologic symptoms, with questionable associated loss of consciousness, possibly seizure versus syncope. Patient history and physical exam were reviewed with attending physician, and ED workup was agreed upon. IV access was obtained and laboratory studies were collected. BSG was performed and was 95. He was placed on the insulation nozzleman. EKG was performed. Orthostatic vital signs did not indicate orthostasis. CBC with differential, coags, magnesium, phosphorus, cardiac enzymes, TSH and CMP were performed. Chest x-ray was obtained and was unremarkable. EKG demonstrated a sinus bradycardia, but otherwise no ectopy or acute ischemic changes. CBC noted a normal white count of 5900, H&H is 14.7 and 43.1, platelet count 191 ,000. Coags are normal. Electrolytes are without significant abnormality, except for his phosphorus which is slightly low at 1.8.. Renal function is normal. Liver functions are not elevated. TSH is indicative of a euthyroid state. Cardiac enzymes are negative 1. Urinalysis is clear and urine toxicology screen is positive for benzodiazepines only. All laboratory and diagnostic imaging studies were reviewed with attending physician. Differential includes acute coronary syndrome, arrhythmia, seizure disorder, CVA/TIA, medication withdrawal, medication side effect, orthostasis, dehydration, electrolyte abnormalities, anemia, hypoglycemia, among others. Treatment options were discussed with the patient at length. Patient was also reviewed with the emergency department case folder. Patient would like to pursue further testing in the hospital. He was reviewed with Dr. Cordero with the [facility] Hospitalist Service for further care and management. Medical Decision See ED Course Impression Primary Impression: Syncope Departure Information Referrals Serena Pena C.R.N.P. (PCP) Patient Instructions My [facility]
[2017-02-25] MEDS: ENOXAPARIN 40 MG/0.4 ML SYR SC SCH (18:39)
[2017-02-25] MEDS: SIMVASTATIN 20 MG TAB PO SCH (21:45)
[2017-02-25] MEDS: TRAZODONE HCL 50 MG TAB PO SCH (21:45)
[2017-02-26] VITALS (10 sets, daily range): BP systolic 89–118; BP diastolic 57–72; PULSE 51–86; TEMP 36.4–37.2; O2SAT 95–97
[2017-02-26] MEDS: PAROXETINE 20 MG TAB PO SCH (08:40)
[2017-02-26] MEDS ORDERED: TRAZODONE HCL 50 MG TAB PO SCH (09:00)
[2017-02-26] MEDS: ENOXAPARIN 40 MG/0.4 ML SYR SC SCH (12:30)
[2017-02-26] MEDS ORDERED: CLONAZEPAM 0.5 MG TAB PO STA (17:19)
[2017-02-26 19:28] LABS: LYME DISEASE AB IGG NEG (NEG)
[2017-02-26 19:31] LABS: LYME DISEASE AB IGM EQUIVOCAL (NEG)
--- NOTE | 2017-02-26 19:52 | DIAGNOSTIC IMAGING REPORT ---
ORBIT RADIOGRAPHS 3 VIEWS HISTORY: pre-MRI screening. COMPARISON: None. FINDINGS: There are no radiopaque foreign bodies identified within the orbits. IMPRESSION: No radiopaque foreign bodies identified within the orbits. Electronically signed by: Moo Stevens M.D. 02/26/2017 7:50 PM Dictated Date/Time: 02/26/2017 7:50 PM
--- NOTE | 2017-02-26 21:26 | DIAGNOSTIC IMAGING REPORT ---
Brain MRA HISTORY: electric shock sensation over face, eval for vasculitis TECHNIQUE: 3-D [id number] MRA of the brain was performed without contrast. COMPARISON STUDY: Head CT 01/10/2017. FINDINGS: Visualized intracranial internal carotid arteries, distal vertebral arteries, and basilar artery are widely patent. There is no significant stenosis, occlusion, or aneurysm seen within the bilateral ACAs, MCAs, or hospitality housekeeper. Hypoplastic right P1 segment. The right REAL ESTATE TEACHER is fed primarily through the posterior communicating artery consistent with persistent circulation. IMPRESSION: No significant stenosis, occlusion, or aneurysm within the [place]. Electronically signed by: Moo Stevens M.D. 02/26/2017 9:24 PM Dictated Date/Time: 02/26/2017 9:22 PM
--- NOTE | 2017-02-26 21:28 | DIAGNOSTIC IMAGING REPORT ---
NECK MRA HISTORY: Seizures. paresthesias TECHNIQUE: [id number] and gadolinium-enhanced MRA of the neck was performed both before and after the intravenous administration of contrast. All measurements were calculated based on NASCET criteria. COMPARISON STUDY: None. FINDINGS: The aortic arch and proximal great vessels are widely patent. There is no significant stenosis, occlusion, or dissection identified within the bilateral common carotid, internal carotid, or vertebral arteries. Tortuous bilateral distal internal carotid arteries IMPRESSION: No significant stenosis, occlusion, or dissection identified within the carotid or vertebral arteries. Electronically signed by: Moo Stevens M.D. 02/26/2017 9:27 PM Dictated Date/Time: 02/26/2017 9:25 PM
[2017-02-26] MEDS: TRAZODONE HCL 50 MG TAB PO SCH (21:44)
[2017-02-26] MEDS: SIMVASTATIN 20 MG TAB PO SCH (21:45)
[2017-02-26] MEDS ORDERED: GADAVIST IV PRN (21:45)
[2017-02-26] MEDS: CLONAZEPAM 0.5 MG TAB PO SCH (21:45)
--- NOTE | 2017-02-26 21:55 | DIAGNOSTIC IMAGING REPORT ---
Brain MRI WITH AND WITHOUT CONTRAST HISTORY: Seizure. eval for tumors, stroke, etc TECHNIQUE: Multiplanar multisequence MRI of the brain was performed both before and after the intravenous administration of contrast. COMPARISON STUDY: Head CT 01/10/2017. FINDINGS: There are no areas of restricted diffusion to suggest acute infarction. The midline structures are intact. A 3 cm retention cyst within the right maxillary sinus.. The mastoid air cells are clear. The ventricles and sulci are within normal limits for age. There is no mass, hematoma, midline shift. The major vascular flow-voids at the skull base are well maintained. Postcontrast sequences show no areas of abnormal enhancement. Small focus of encephalomalacia within the left anterior frontal lobe cortex best seen on image 16. This favors an old injury or old infarct. There is a tiny focus of adjacent gliosis at this location. The temporal lobes are symmetric. IMPRESSION: No acute intracranial abnormality. Small focus of encephalomalacia within the left anterior frontal lobe likely represents an old injury or old infarct. Electronically signed by: Moo Stevens M.D. 02/26/2017 9:54 PM Dictated Date/Time: 02/26/2017 9:46 PM
[2017-02-27 07:06] VITALS: BP_SYST 103; BP_SYST 104; BP_DIAS 65; BP_DIAS 67; BP_DIAS 70; PULSE 54; PULSE 57; TEMP 36.8; O2SAT 95
[2017-02-27 08:00] VITALS: O2SAT 95
--- NOTE | 2017-02-27 08:06 | Progress Note ---
Subjective Date of Service: February 26, 2017. Subjective Pt evaluation today including: conversation w/ patient, physical exam, chart review, lab review, review of studies (MRIs), review of inpatient medication list Pain: no headache, no pain with "shock feeling" of face PO Intake: normal Voiding: no voiding problems electric "shock" sensations/spells on b/l face present x 8 years had previous w/u through the [facility] 4-5 years ago; neg MRI brain, neg EEG he states the "shock" sensation causes him to "disassociate" he has had one episode in the past where he felt like he was going to pass out he occasionally has "depth perception" problems but denies diplopia, visual field cuts, or vertigo symptoms occur at rest nothing seems to induce the symptoms such as arm movements, neck movements, etc on rare occasions he feels like his body "goes flaccid" (arms and legs) but this is seldom he has been given multiple meds over the years for this as it was presumed the symptoms were anxiety/panic related klonipin DOES help this was stopped in January and his symptoms have been MUCH worse [place] and asks about lyme's disease no recent rash Problem List Medical Problems: (1) Dyslipidemia Status: Chronic (2) Syncope Status: Acute Review of Systems Constitutional: No chills, No fever Respiratory: No dyspnea on exertion, No shortness of breath Cardiac: No chest pain Abdomen: No pain Objective Vital Signs Date Time Temp Pulse Resp B/P Pulse Ox O2 Delivery O2 Flow Rate FiO2 02/26/17 23:59 Room Air 02/26/17 23:49 36.5 60 18 103/67 96 Room Air 60 93/60 60 96/61 02/26/17 22:42 51 101/65 02/26/17 20:00 Room Air 02/26/17 19:43 36.8 64 18 118/70 95 Room Air 02/26/17 16:00 Room Air 02/26/17 15:17 36.7 68 16 104/60 96 Room Air 68 115/62 85 111/72 02/26/17 12:00 95 Room Air 02/26/17 11:35 37.2 62 16 106/65 97 Room Air 02/26/17 08:00 95 Room Air 02/26/17 07:12 36.6 51 18 97/60 95 Room Air 02/26/17 04:00 36.6 63 18 90/58 97 Room Air 63 02/26/17 04:00 Room Air Physical Exam General Appearance: no apparent distress ENT: pharynx normal Neck: no JVD Respiratory/Chest: lungs clear, no respiratory distress, no accessory muscle use Cardiovascular: regular rate, rhythm, no gallop, no murmur Abdomen: normal bowel sounds, non tender, soft, no organomegaly Extremities: no pedal edema Neurologic/Psychiatric: paver layer II-XII nml as tested, no motor/sensory deficits, alert, normal mood/affect, oriented x 3 Skin: no rash Laboratory Results Last 24 Hours Test 02/26/17 07:36 02/26/17 11:38 02/26/17 16:29 02/26/17 17:53 Bedside Glucose 110 mg/dl 93 mg/dl 89 mg/dl Erythrocyte Sedimentation Rate 5 mm/hr Vitamin B12 Level 593 pg/mL Lyme Disease IgG Antibody NEG Lyme Disease IgM Antibody EQUIVOCAL Test 02/26/17 22:02 Bedside Glucose 91 mg/dl Assessment and Plan 51yo male - 1. "electric shock" / paresthesias of b/l face x 8 years, recently worse off of klonipin - plan MRI head, MRA brain, MRA neck lyme's b12 level sed rate EEG differential - complex partial seizures vs psychiatric in nature vs metabolic cause vs infectious vs other pending his results may need neurology for their opinion 2. anxiety disorder / PTSD - resume klonipin 0.5mg BID 3. DVT proph - lovenox daily Discharge planning: home
[2017-02-27] MEDS: CLONAZEPAM 0.5 MG TAB PO SCH (08:28)
[2017-02-27] MEDS: PAROXETINE 20 MG TAB PO SCH (08:29)
--- NOTE | 2017-02-27 09:12 | EEG Procedure Note ---
EEG Procedure Note Date of Service February 27, 2017. Start / End Times Start Time: 7:03 AM End Time: 7:23 AM Referring Physician Jarvis Bhat History This is a 51-year-old male with seizure-like activity. EEG for further evaluation of possible seizure etiology. Home Medication List Scheduled Cholecalciferol (Vitamin D-3), 2 TABS PO QAM Paroxetine (Paxil), Unknown Dose PO DAILY Simvastatin (Simvastatin), 0.5 TAB PO HS Trazodone Hcl (Trazodone), 50 MG PO DAILY Inpatient Medication List Current Inpatient Medications Medications (Trade) Dose Ordered Sig/John Route Start Time Stop Time Status Last Admin Dose Admin Enoxaparin Sodium (Lovenox Inj) 40 mg Q24H SC 02/25/17 12:30 03/27/17 12:29 02/25/17 18:39 40 MG Acetaminophen (Tylenol Tab) 650 mg Q4H PRN PO 02/25/17 12:30 03/27/17 12:29 Ondansetron HCl (Zofran Inj) 4 mg Q6H PRN IV 02/25/17 12:30 03/27/17 12:29 Simvastatin (Zocor Tab) 20 mg HS PO 02/25/17 21:00 03/27/17 20:59 02/26/17 21:45 20 MG Paroxetine HCl (pAXil TAB) 10 mg QAM PO 02/26/17 09:00 03/28/17 08:59 Lorazepam (Ativan Inj) 1 mg Q6 PRN IV 02/25/17 13:00 03/27/17 12:59 Lorazepam (Ativan Tab) 0.5 mg Q4 PRN PO 02/25/17 13:00 03/27/17 12:59 02/26/17 12:38 0.5 MG Miscellaneous 1 ea 1 ea PRN PRN N/A 02/25/17 13:45 02/25/18 13:44 Lorazepam/Syringe (Ativan Inj/ Syringe) 1 ml @ 1 mls/min Q6H PRN IV 02/25/17 14:00 03/27/17 13:59 02/25/17 20:17 1 MLS/MIN Trazodone HCl (Desyrel Tab) 50 mg HS PO 02/25/17 21:00 03/27/17 20:59 02/26/17 21:44 50 MG Clonazepam (Klonopin Tab) 0.5 mg BID PO 02/26/17 21:00 03/28/17 20:59 02/27/17 08:28 0.5 MG Gadobutrol (Gadavist) 7 mmol UD PRN IV 02/26/17 21:45 03/02/17 21:44 Description This is a 21 electrode EEG with a single channel dedicated to limited EKG. The electrodes were placed in accordance with the International 10-20 system. At the start of the recording the patient was in an awake state. Background was well organized and composed of symmetric mixed alpha and beta frequencies. There was a symmetric well-formed moderate amplitude 9-10 Hz posterior dominant rhythm that was reactive to eye opening and closure. Hyperventilation was not done. Intermittent photic stimulation at various frequencies produced no abnormalities. There was no state changes or sleep transients. Interpretation This is a normal awake only routine EEG. There was no electrographic seizures or epileptiform discharges. Clinical Correlation A normal EEG does not rule out epilepsy if there is a strong clinical suspicion.
--- NOTE | 2017-02-27 10:28 | Neurology Consultation ---
Neurology Consultation Date of Consultation: February 27, 2017. Attending Physician: Jarvis Bhat MD Primary Care Physician: Serena Pena C.R.N.P. Reason for Consultation: Complex partial seizures? History of Present Illness Source: patient, hospital records The patient is a 51-year-old male with a history of post traumatic stress disorder, anxiety disorder, and panic attacks who has been experiencing episodic, paroxysmal, electric-like sensations which seem to emanate from his brain and travel throughout his body. He denies experiencing any pain associated with these episodes which reportedly occur multiple times per day. These episodes occur suddenly but are often preceded by a general feeling of anxiousness as well as a feeling as if something bad is going to happen. Some of these episodes have been quite intense and have been associated with falls. He has not sustained any major injuries, however. He denies associated tongue bite or incontinence of stool or urine. The patient reports that he maintains awareness during these episodes. No stiffening of the limbs or associated shaking movements reported. No abnormal posturing. The patient indicates that he began experiencing these episodes over 10 years ago and that he was treated with clonazepam at that time. He reports that this medication has been fairly helpful in reducing the intensity and frequency of these episodes over the ensuing years. However, more recently, his primary care physician recommended tapering off clonazepam. The patient states that he began experiencing more of these episodes as a result of discontinuation of this medication. The patient states that he was evaluated by a neurologist affiliated with the [facility] in [place]. He recalls having an EEG completed a few years ago and was told the results were normal. He has not been diagnosed with epilepsy or seizure disorder. Patient denies a family history of epilepsy. The patient denies a past medical history of head injury or stroke. He reports a fairly normal developmental history although indicates that he may have attention deficit disorder but states this was never formally evaluated and treated. 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 Past Medical/Surgical History Medical Problems: (1) Dyslipidemia Status: Chronic (2) Syncope Status: Acute Family History The patient denies a family history of epilepsy or seizure disorder although does report a history of paranoid schizophrenia in several relatives Social History Smokeless Tobacco Use: Yes Alcohol Use: none Drug Use: none Marital Status: single Housing Status: lives alone Occupation Status: employed Allergies Coded Allergies: Hydroxyzine (Unverified Allergy, Intermediate, ., 02/25/17) Sertraline (Unverified Allergy, Intermediate, ., 02/25/17) Current Inpatient Medications Current Inpatient Medications Medications (Trade) Dose Ordered Sig/John Route Start Time Stop Time Status Last Admin Dose Admin Enoxaparin Sodium (Lovenox Inj) 40 mg Q24H SC 02/25/17 12:30 03/27/17 12:29 02/25/17 18:39 40 MG Acetaminophen (Tylenol Tab) 650 mg Q4H PRN PO 02/25/17 12:30 03/27/17 12:29 Ondansetron HCl (Zofran Inj) 4 mg Q6H PRN IV 02/25/17 12:30 03/27/17 12:29 Simvastatin (Zocor Tab) 20 mg HS PO 02/25/17 21:00 03/27/17 20:59 02/26/17 21:45 20 MG Paroxetine HCl (pAXil TAB) 10 mg QAM PO 02/26/17 09:00 03/28/17 08:59 Lorazepam (Ativan Inj) 1 mg Q6 PRN IV 02/25/17 13:00 03/27/17 12:59 Lorazepam (Ativan Tab) 0.5 mg Q4 PRN PO 02/25/17 13:00 03/27/17 12:59 02/26/17 12:38 0.5 MG Miscellaneous 1 ea 1 ea PRN PRN N/A 02/25/17 13:45 02/25/18 13:44 Lorazepam/Syringe (Ativan Inj/ Syringe) 1 ml @ 1 mls/min Q6H PRN IV 02/25/17 14:00 03/27/17 13:59 02/25/17 20:17 1 MLS/MIN Trazodone HCl (Desyrel Tab) 50 mg HS PO 02/25/17 21:00 03/27/17 20:59 02/26/17 21:44 50 MG Clonazepam (Klonopin Tab) 0.5 mg BID PO 02/26/17 21:00 03/28/17 20:59 02/27/17 08:28 0.5 MG Gadobutrol (Gadavist) 7 mmol UD PRN IV 02/26/17 21:45 03/02/17 21:44 Review of Systems The patient denies headache, fever, chills, vision change, hearing loss, chest pain, palpitations, shortness of breath, coughing, wheezing, abdominal pain, diarrhea, dysuria, incontinence, muscle pain, joint pain, swollen glands, abnormal bleeding or easy bruising, or rash. He does endorse a general feeling of anxiousness. A full 10 point review of systems was obtained from this patient with pertinent positives and negatives described in the history of present illness and otherwise listed above. Physical Exam Vital Signs (Past 24 Hrs): Date Time Temp Pulse Resp B/P Pulse Ox O2 Delivery O2 Flow Rate FiO2 02/27/17 07:06 36.8 54 18 104/67 95 Room Air 57 103/65 57 103/70 02/27/17 04:00 Room Air 02/26/17 23:59 Room Air 02/26/17 23:49 36.5 60 18 103/67 96 Room Air 60 93/60 60 96/61 02/26/17 22:42 51 101/65 02/26/17 20:00 Room Air 02/26/17 19:43 36.8 64 18 118/70 95 Room Air 02/26/17 16:00 Room Air 02/26/17 15:17 36.7 68 16 104/60 96 Room Air 68 115/62 85 111/72 02/26/17 12:00 95 Room Air 02/26/17 11:35 37.2 62 16 106/65 97 Room Air The patient is a well-developed middle-aged male, lying in bed, no acute distress. He is alert and oriented to person place and time. Attention and concentration normal. Recent and remote memory intact. He is able to name objects and repeat phrases. Patient exhibits a normal spontaneous fluent speech pattern. He exhibits a normal age appropriate fund of knowledge and normal vocabulary. Visual zuniga full to confrontation. Visual acuity normal. Pupils equal round reactive to light and accommodation. Eye movements normal. No nystagmus. Facial sensation intact bilaterally. There is normal facial symmetry and strength. No facial droop. Palate elevates to midline. Tongue protrudes to midline. Shoulder shrug and hearing intact bilaterally. Sensation intact to light touch, temperature, vibration, and proprioception for all 4 limbs. Deep tendon reflexes are 2+ for the upper and lower extremities bilaterally. Plantar responses downgoing bilaterally. There is no dysmetria with finger to nose or heel to bui bilaterally. Ophthalmoscopic examination reveals normal-appearing optic nerves and posterior elements. No papilledema or hemorrhages. Carotid pulses normal bilaterally, no bruits. Musculoskeletal examination reveals normal strength and tone for all 4 limbs proximally and distally. No abnormal movements observed. No atrophy. Gait and station normal. Laboratory Results Past 24 Hours: Test 02/26/17 17:53 02/27/17 07:33 Erythrocyte Sedimentation Rate 5 mm/hr (0-14) Vitamin B12 Level 593 pg/mL (211-911) Lyme Disease IgG Antibody NEG (NEG) Bedside Glucose 128 mg/dl (70-99) Imaging I reviewed the images and radiologist's interpretation of the recently completed brain MRI. There is a small area of chronic encephalomalacia involving a focal area of cerebral cortex overlying the left anterior frontal lobe. Thin sections through the temporal lobes unremarkable without evidence of mesial temporal sclerosis. In summary, no significant abnormalities observed. An electroencephalogram completed at bedside this morning was also reviewed. There is a normal-appearing background alpha rhythm. The patient had one of his reported episodes during photic stimulation. This episode was captured on video and with EEG. No electrographic correlate observed. Impression 51-year-old male with a history of anxiety and posttraumatic stress disorder who has been experiencing episodic paroxysmal episodes of uncertain etiology. His EEG completed this morning was unremarkable in spite of capturing one of these typical spells with photic stimulation. Given the unusual nature of the episodes coupled with a normal EEG recording, I tend to favor a nonepileptic etiology. These episodes may in some way relate to his history of anxiety or posttraumatic stress disorder. I do not think the observed small focal area of encephalomalacia overlying the left anterior frontal lobe is clinically significant. The increased frequency of the reported episodes may relate in part to his reported recent discontinuation of clonazepam and could be a feature of mild withdrawal further augmented by baseline anxiety. Plan Would consider obtaining psychiatric consultation for further assistance in this patient's medical management as it pertains to anxiety disorder and posttraumatic stress disorder and possible mild benzodiazepine withdrawal symptoms. It may be reasonable to consider a trial of either Lamictal or Topamax to manage his symptoms. However, I think prescribing them from a neurological perspective would be problematic at this time given lack of evidence of epilepsy or seizure disorder. A psychiatric consultation would be preferable. As we have captured one of these episodes on EEG I do not think further outpatient ambulatory EEG monitoring would be useful. If, however, additional neurological assessment is requested then I would recommend evaluation at a tertiary center for prolonged video EEG monitoring. Please contact me if you have any questions regarding this consultation.
[2017-02-27 11:30] VITALS: BP 92/57; PULSE 56; TEMP 36.9; O2SAT 95
[2017-02-27 12:00] VITALS: O2SAT 95
[2017-02-27] MEDS: ENOXAPARIN 40 MG/0.4 ML SYR SC SCH (12:30)
[2017-02-27 13:24] LABS: HYDROXYETHYLFLURAZEPAM CONF NEGATIVE NG/ML (CUTOFF=50); HYDROXYMIDAZOLAM NEGATIVE NG/ML (CUTOFF=50); HYDROXYTRIAZOLAM CONF NEGATIVE NG/ML (CUTOFF=50); TEMAZEPAM CONF NEGATIVE NG/ML (CUTOFF=50)
[2017-02-27] MEDS ORDERED: KLN5 PO (14:02)
[2017-02-27] MEDS ORDERED: PARO10TA3 PO (14:02)
--- NOTE | 2017-02-27 14:17 | Discharge Instructions ---
Discharge Instructions Date of Service February 27, 2017. Admission Reason for Admission: Seizure-Like Activity Discharge Discharge Diagnosis / Problem: "electric shocks" of face/head - seizures ruled out, no stroke either Discharge Goals Goal(s): Learn about illness, Diagnostic testing, Therapeutic intervention Activity Recommendations Activity Limitations: resume your previous activity . Instructions / Follow-Up Instructions / Follow-Up From Dr. Bhat - 1. Your work-up for the electric shock sensation in the head/face was normal. We did not find seizures, tumors of the brain, etc. Your vitamin B12 level was normal. Our neurologist recommends you continue on your clonazepam as previous. If your symptoms persist or get worse then the next step might be an outpatient "video EEG" test (an extended time EEG). 2. Please see your primary care doctor and/or psychiatrist to obtain refills on the clonazepam. You are being provided a two-week supply of the clonazepam. Do not drink alcohol with clonazepam. Do not drive a car if the clonazepam makes you tired. 3. Your lyme's testing was inconclusive. However, the lyme's test portion that tells us if you have chronic / long-term lyme's was in fact negative. A second lyme's test has been sent and will return in about 1 week. If the second test for lyme's is in fact positive we would call in antibiotics for you. However, at this time, hopefully the first test is simply a false reading and will not require any treatment. 4. Please see Ms. Pena within 5 days at the [facility]. 5. Return to [facility] if your facial symptoms worsen, become painful, are associated with NEW neurological symptoms (arm/leg numbness, weakness of the arms/legs), etc. 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 This is felt to NOT be causing your symptoms. MRI of the blood vessels of the head and neck - NORMAL, no aneurysms or blockages. EEG test - NO evidence of seizure activity. Pending Studies Studies pending at discharge: yes List of pending studies: confirmatory lyme's test Medical Emergencies . Who to Call and When: Medical Emergencies: If at any time you feel your situation is an emergency, please call 911 immediately. . Non-Emergent Contact Non-Emergency issues call your: Primary Care Provider Call Non-Emergent contact if: temperature is above 100.5, your pain is not controlled, your pain is worsening, your pain is unusual for you, your pain is concerning you, you have any medication questions . . "Provider Documentation" section prepared by Jarvis Bhat. . VTE Core Measure Inpt VTE Proph given/why not?: Enoxaparin (Lovenox)SQ, T.E.D. Stockj[place], SCD's
[2017-02-27 14:45] VITALS: BP 92/57; PULSE 56; TEMP 36.9; O2SAT 95
[2017-03-03 23:28] LABS: 18KDIGG BAND NONREACTIVE (NONREACTIVE); 23KDIGG BAND NONREACTIVE (NONREACTIVE); 23KDIGM BAND REACTIVE (NONREACTIVE); 28KDIGG BAND NONREACTIVE (NONREACTIVE); 30KDIGG BAND NONREACTIVE (NONREACTIVE); 39KDIGG BAND NONREACTIVE (NONREACTIVE); 39KDIGM BAND NONREACTIVE (NONREACTIVE); 41KDIGG BAND REACTIVE (NONREACTIVE); 41KDIGM BAND REACTIVE (NONREACTIVE); 45KDIGG BAND NONREACTIVE (NONREACTIVE); 58KDIGG BAND NONREACTIVE (NONREACTIVE); 66KDIGG BAND REACTIVE (NONREACTIVE); 93KDIGG BAND NONREACTIVE (NONREACTIVE)
--- NOTE | 2017-03-05 23:12 | Discharge Summary ---
Discharge Summary Date of Service February 27, 2017. Discharge Summary Admission Date: February 25, 2017 at 12:31 Discharge Date: February 27, 2017 Discharge Disposition: Home Principal Diagnosis: paresthesias of face Problems/Secondary Diagnoses: 1. possible benzodiazepine withdrawal 2. PTSD 3. generalized anxiety disorder 4. hyperlipidemia 5. equivocal lyme's IgM titer - western blot pending Procedures: 1. MRI brain: IMPRESSION: No acute intracranial abnormality. Small focus of encephalomalacia within the left anterior frontal lobe likely represents an old injury or old infarct. 2. MRA head, MRA neck - normal, no stenotic lesion or aneurysm. 3. EEG - negative for seizure activity. Consultations: neurology - Km Glaser MD Medication Reconciliation New Medications: Clonazepam (Clonazepam) 0.5 Mg Tab 0.5 MG PO BID for 14 Days, #28 TAB 0 Refills Changed Medications: Paroxetine HCl (Paroxetine) 10 Mg Tab 10 MG PO DAILY, #30 1 Refill (Changed from: Paroxetine (Paxil) 40 Mg Tab Unknown Dose PO DAILY) Continued Medications: Cholecalciferol (Vitamin D-3) 1,000 Unit Tab 2 TABS PO QAM Simvastatin (Simvastatin) 40 Mg Tab 0.5 TAB PO HS Trazodone Hcl (Trazodone) 50 Mg Tab 50 MG PO DAILY, TAB Referrals At Discharge Follow up Referrals: Physician Referral - Please Call For Appointment with Serena Pena C.R.N.P. 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 Patient reports electricity shocking episodes are chronic in nature, but had a bad spell at approximately 1:30 in the morning last night. He reports that he was able to go back to sleep and then woke back up around 6:30 AM with another. He reports the sensation is as if the electricity has been removed from his body. He denies any loss of consciousness during the event reports that if the pain/electrical shock sensation is too great, he has experience seizure-like activity. He he denies having any tonic-clonic seizure-like activity, but does report a post-event phase where he was not able to remember the event. This has been witnessed by a secretary administrative assistant at work before. The events have increased in intensity and frequency since he's been taken off Klonopin at the beginning of January. Patient reports he has 1 episode approximately every other day with each lasting from 1 hour to several hours on a regular basis. He has not identified any trigger factors. He does not find any alleviating factors other than Ativan or Klonopin. Patient was seen by psychiatrist at the [facility] at end of last week, and was started on paroxetine 10 mg daily for depression, anxiety and panic attacks. He has taken this before and experienced improvement in his mood, but stopped it due to sexual dysfunction. Since this weekend, he has taken it for one day and actually has reservations about continuing the medication due to history of sexual dysfunction while on it. HOSPITAL COURSE: 1. "electric shock" / paresthesias of bilateral face x 8 years, recently worse off of klonipin - MRI head, MRA brain, and MRA of the neck were all normal except for a small area of encephalomalacia in the left frontal lobe. He was seen in consult by Dr. Km Glaser, neurology. EEG was obtained and the patient in fact had an electric shock episode during the EEG. The EEG did NOT show any seizure activity. Dr. Glaser did not feel that the paresthesias/shock episodes were from complex partial seizures. Sed rate, vitamin B12 level, and TSH were all normal. Lyme's screen showed an equivocal IgM antibody but his IgG antibody was negative. Acute lyme's was not felt to be the cause of his symptoms. Furthermore, the small area of encephalomalacia on MRI brain was also felt to not be the root cause of his symptoms either. After his extensive work-up was completed it was felt that benzodiazepine withdrawal and severe anxiety were the likely culprits for his symptoms. He was resumed on klonipin 0.5mg BID and he felt MUCH better. 2. equivocal IgM lyme's antibody - A Western Blot test was sent and is pending at time of discharge. If the lyme's test proves to be a "true positive" he will be started on doxycycline. Total Time Spent: Greater than 30 minutes This includes examination of the patient, discharge planning, medication reconciliation, and communication with other providers. Discharge Instructions Please refer to the electronic Patient Visit Report (Discharge Instructions) for additional information. Follow-Up see Serena Pena, [facility], within 1 week Additional Copies To Serena Pena C.R.N.P.
== END 2017-02-27 15:29 | disposition home or self-care (01) ==
LOC: ENRESERVDT → ENRESERVTM → C.EDB 08:00 → C.MED 12:31
PROVIDERS: ADMIT Family Medicine; ATTEND Internal Medicine
DX: G98.8 Other disorders of nervous system (principal); R55 Syncope and collapse; F43.10 Post-traumatic stress disorder, unspecified; E78.5 Hyperlipidemia, unspecified; F32.9 Major depressive disorder, single episode, unspecified; E78.00 Pure hypercholesterolemia, unspecified; Z87.891 Personal history of nicotine dependence